=== PATIENT | female | born 1945 | race Caucasian/White ===

== ENCOUNTER → 2017-01-26 | Outpatient (CLI) | payer MEDICARE ==
[~2017-01-26] MED LIST: CALCIUM + D 6001 TA1 PO; FISH OIL 1,0001 EAC2 PO; HYDROCHLOROTHIA25 MG PO; METFORMIN HCL500 M1 PO; METOPROLOL TAR100 MG PO; PRINIVIL20 M1 PO; VIT E PO; VITAMIN C500 MG/15 PO; ZOCOR20 MG PO
== END | disposition home or self-care (01) ==
LOC: CLAB 14:35
DX: R19.7 Diarrhea, unspecified (principal)
CPT/HCPCS: 87045; 87427; 87493; 87899